=== PATIENT | female | born 1955 | race Caucasian/White ===

== ENCOUNTER 2022-03-04 11:18 | Emergency (ER) | payer MEDICARE ==
[~2022-03-04] VITALS: Ht 152.4 cm; Wt 64.9 kg
[~2022-03-04 11:18] MED LIST: ACET325 PO; ASPI81CH PO; BUPROPION XL150 M1 PO; FAMO20 PO; FLUT1DIS5 INH; FURO20 PO; LOSA50 PO; METO50ER PO; NAPR500 PO; NICO21TP TOP; ONDA4ODT SL; SERT100 PO; SPIR25 PO; TIOT18 INH; TRAZ50 PO; ZOCOR20 MG PO
[2022-03-04 11:48] LABS: BASOPHILS ABSOLUTE AUTO 0.04 K/mm3 (0.00-0.23); BASOPHILS PERCENT AUTO 1 % (0-2); EOSINOPHILS ABSOLUTE AUTO 0.07 K/mm3 (0.00-0.68); EOSINOPHILS PERCENT AUTO 1 % (0-6); Hemoglobin 12.4 g/dL (11.5-16.0); IMMATURE GRAN ABSOLUTE AUTO 0.01 K/mm3 (0.00-0.10); IMMATURE GRAN PERCENT AUTO 0 % (0-1); LYMPHOCYTES ABSOLUTE AUTO 1.93 K/mm3 (0.84-5.20); LYMPHOCYTES PERCENT AUTO 31 % (21-46); MONOCYTES ABSOLUTE AUTO 0.47 K/mm3 (0.16-1.47); MONOCYTES PERCENT AUTO 8 % (4-13); Mean Corpuscular HGB 33.5 pg (26.0-34.0); Mean Corpuscular HGB Conc 34.4 g/dL (31.5-36.5); Mean Corpuscular Volume 97 fL (80-100); Mean Platelet Volume 10.4 fL (9.1-12.4); NEUTROPHILS ABSOLUTE AUTO 3.74 K/mm3 (1.96-9.15); NEUTROPHILS PERCENT AUTO 60 % (41-73); Platelet Count 282 K/mm3 (150-400); RDW Coefficient Variation 11.7 % (11.7-14.2); RDW Standard Deviation 41.6 fL (35.1-46.3); White Blood Cell Count 6.26 K/mm3 (4.00-11.30)
[2022-03-04 12:04] LABS: Albumin, Blood 3.7 g/dL (3.4-5.0); Bilirubin, Total 0.7 mg/dL (0.1-1.0); Bun/Creatinine Ratio 24.3 (12.0-20.0); Calcium, Blood 9.2 mg/dL (8.5-10.1); Creatinine, Blood 0.95 mg/dL (0.40-1.00); Globulin, Blood 3.7 g/dL (2.2-4.0); Potassium, Blood 4.3 mmol/L (3.5-5.5); Total Protein, Blood 7.4 g/dL (6.4-8.2)
== END 2022-03-04 14:54 | disposition home or self-care (01) ==
LOC: ER 11:18
PROVIDERS: Emergency Medicine
DX: R07.89 Other chest pain (principal); Z88.0 Allergy status to penicillin; Z79.899 Other long term (current) drug therapy; Z79.82 Long term (current) use of aspirin; J43.9 Emphysema, unspecified; I25.2 Old myocardial infarction; F17.200 Nicotine dependence, unspecified, uncomplicated
CPT/HCPCS: 71045; 80053; 83690; 83880; 84484; 85025; 93005; 93010; 99285-25; A9270

== ENCOUNTER 2022-09-14 12:56 | Day surgery (SDC) | payer MEDICARE ==
[~2022-09-14] VITALS: Ht 152.4 cm; Wt 61.4 kg
[2022-09-14] MEDS ORDERED: PANT40 (14:15)
[2022-09-14] MEDS ORDERED: ATOR40TA (14:15)
[2022-09-14] MEDS ORDERED: CYCLOBENZAPRINE5 MG (14:16)
[2022-09-14] MEDS ORDERED: CYCL10 (14:16)
[2022-09-14] MEDS ORDERED: PROP10 (14:16)
[2022-09-14 15:55] VITALS: BP 125/57
== END 2022-09-14 15:52 | disposition home or self-care (01) ==
LOC: ORSCSDS 12:56
PROVIDERS: Internal Medicine Gastroenterology
PROC: 0DJD8ZZ Inspection of Lower Intestinal Tract, Via Natural or Artificial Opening Endoscopic (ICD-10-PCS; principal; 2022-09-14 14:30)
DX: Z12.11 Encounter for screening for malignant neoplasm of colon (principal); K57.30 Diverticulosis of large intestine without perforation or abscess without bleeding; J44.9 Chronic obstructive pulmonary disease, unspecified; I25.2 Old myocardial infarction; I27.20 Pulmonary hypertension, unspecified; I50.9 Heart failure, unspecified; Z79.82 Long term (current) use of aspirin; Z79.899 Other long term (current) drug therapy; F17.210 Nicotine dependence, cigarettes, uncomplicated
CPT/HCPCS: J2704; J7120

== ENCOUNTER 2023-02-26 09:43 | Emergency (ER) | payer MEDICARE ==
[~2023-02-26] VITALS: Ht 152.4 cm; Wt 61.2 kg
[~2023-02-26 09:43] MED LIST changes: +ATOR40TA; +CYCL10; +CYCLOBENZAPRINE5 MG; +PANT40; +PROP10
[2023-02-26 10:30] LABS: BASOPHILS ABSOLUTE AUTO 0.04 K/mm3 (0.00-0.23); BASOPHILS PERCENT AUTO 1 % (0-2); EOSINOPHILS ABSOLUTE AUTO 0.04 K/mm3 (0.00-0.68); EOSINOPHILS PERCENT AUTO 1 % (0-6); Hematocrit 37.6 % (33.0-51.0); Hemoglobin 12.9 g/dL (11.5-16.0); IMMATURE GRAN ABSOLUTE AUTO 0.02 K/mm3 (0.00-0.10); IMMATURE GRAN PERCENT AUTO 0 % (0-1); LYMPHOCYTES ABSOLUTE AUTO 1.57 K/mm3 (0.84-5.20); LYMPHOCYTES PERCENT AUTO 19 % (21-46); MONOCYTES ABSOLUTE AUTO 0.63 K/mm3 (0.16-1.47); MONOCYTES PERCENT AUTO 8 % (4-13); Mean Corpuscular HGB 35.1 pg (26.0-34.0); Mean Corpuscular HGB Conc 34.3 g/dL (31.5-36.5); Mean Corpuscular Volume 103 fL (80-100); NEUTROPHILS ABSOLUTE AUTO 5.94 K/mm3 (1.96-9.15); NEUTROPHILS PERCENT AUTO 72 % (41-73); Platelet Count 330 K/mm3 (150-400); RDW Coefficient Variation 13.1 % (11.7-14.2); RDW Standard Deviation 49.5 fL (35.1-46.3); Red Blood Cell Count 3.67 M/mm3 (3.80-5.20); White Blood Cell Count 8.24 K/mm3 (4.00-11.30)
[2023-02-26 10:48] LABS: Albumin, Blood 3.5 g/dL (3.4-5.0); Albumin/Globulin Ratio 0.8 (0.8-1.8); Bilirubin, Total 0.9 mg/dL (0.1-1.0); Bun/Creatinine Ratio 21.1 (12.0-20.0); Calcium, Blood 8.3 mg/dL (8.5-10.1); Creatinine, Blood 0.81 mg/dL (0.40-1.00); Globulin, Blood 4.5 g/dL (2.2-4.0); Potassium, Blood 3.6 mmol/L (3.5-5.5)
[2023-02-26 11:57] VITALS: BP 110/83
[2023-02-26] MEDS ORDERED: OXYC5 PO (12:08)
[2023-02-26] MEDS ORDERED: IBUP600 PO (12:09)
== END 2023-02-26 13:00 | disposition home or self-care (01) ==
LOC: ER 09:43
PROVIDERS: Emergency Medicine
DX: M47.22 Other spondylosis with radiculopathy, cervical region (principal); M50.121 Cervical disc disorder at C4-C5 level with radiculopathy; M50.122 Cervical disc disorder at C5-C6 level with radiculopathy; M50.123 Cervical disc disorder at C6-C7 level with radiculopathy; M48.02 Spinal stenosis, cervical region; J43.9 Emphysema, unspecified; I25.2 Old myocardial infarction; I11.0 Hypertensive heart disease with heart failure; I50.20 Unspecified systolic (congestive) heart failure; E78.5 Hyperlipidemia, unspecified; F41.8 Other specified anxiety disorders; F17.210 Nicotine dependence, cigarettes, uncomplicated; Z88.0 Allergy status to penicillin; Z88.8 Allergy status to other drugs, medicaments and biological substances; Z79.82 Long term (current) use of aspirin; Z79.899 Other long term (current) drug therapy; Z79.51 Long term (current) use of inhaled steroids
CPT/HCPCS: 70450; 72125; 80053; 85025; 96374; 96375; 96376; 99284-25; J1170; J1885

== ENCOUNTER 2023-07-16 20:10 | Inpatient (IN) | payer MEDICARE ==
[~2023-07-16] VITALS: Ht 152.4 cm; Wt 63.5 kg
[~2023-07-16 20:10] MED LIST changes: -ATOR40TA; +ATOR40TA PO; -CYCL10; +CYCL10 PO; +IBUP600 PO; +OXYC5 PO; -PANT40; +PANT40 PO; -PROP10; +PROP10 PO
[2023-07-16] MEDS ORDERED: FentaNYL Citrate 50 MCG/ML 2 ML Injection ONE (20:30)
[2023-07-16] MEDS ORDERED: FentaNYL Citrate 50 MCG/ML 2 ML Injection IV ONE ×2 (20:45→21:10)
[2023-07-16] MEDS ORDERED: Lactated Ringer's 1,000 ML IV ONE (20:45)
[2023-07-16 21:05] LABS: BASOPHILS ABSOLUTE AUTO 0.05 K/mm3 (0.00-0.23); BASOPHILS PERCENT AUTO 1 % (0-2); EOSINOPHILS ABSOLUTE AUTO 0.14 K/mm3 (0.00-0.68); EOSINOPHILS PERCENT AUTO 2 % (0-6); Hematocrit 31.1 % (33.0-51.0); Hemoglobin 10.5 g/dL (11.5-16.0); IMMATURE GRAN ABSOLUTE AUTO 0.02 K/mm3 (0.00-0.10); IMMATURE GRAN PERCENT AUTO 0 % (0-1); LYMPHOCYTES ABSOLUTE AUTO 1.66 K/mm3 (0.84-5.20); LYMPHOCYTES PERCENT AUTO 28 % (21-46); MONOCYTES ABSOLUTE AUTO 0.59 K/mm3 (0.16-1.47); MONOCYTES PERCENT AUTO 10 % (4-13); Mean Corpuscular HGB 33.1 pg (26.0-34.0); Mean Corpuscular HGB Conc 33.8 g/dL (31.5-36.5); Mean Corpuscular Volume 98 fL (80-100); NEUTROPHILS ABSOLUTE AUTO 3.52 K/mm3 (1.96-9.15); NEUTROPHILS PERCENT AUTO 59 % (41-73); Platelet Count 260 K/mm3 (150-400); RDW Coefficient Variation 12.5 % (11.7-14.2); RDW Standard Deviation 44.8 fL (35.1-46.3); Red Blood Cell Count 3.17 M/mm3 (3.80-5.20); White Blood Cell Count 5.98 K/mm3 (4.00-11.30)
[2023-07-16 21:22] LABS: Bun/Creatinine Ratio 22.5 (12.0-20.0); Calcium, Blood 7.7 mg/dL (8.5-10.1); Creatinine, Blood 1.87 mg/dL (0.40-1.00); Potassium, Blood 4.2 mmol/L (3.5-5.5)
[2023-07-16] MEDS ORDERED: HYDROmorphone HCl/Pf 1MG SYR IV ONE (21:30)
[2023-07-16] MEDS ORDERED: NS 1,000 ML IV SCH (21:35)
[2023-07-16 21:40] LABS: Magnesium, Blood 1.5 mg/dL (1.6-2.4)
[2023-07-16] MEDS ORDERED: Propofol 10mg/ml 20 ml Vial (Procedural) IV SCH (21:40)
[2023-07-16] MEDS ORDERED: FLU VACC QS2023-24(6MOS UP)/PF 60 MCG/0.5 ML SYRINGE IM ONE (23:25)
[2023-07-16] MEDS ORDERED: Ondansetron HCl 2 MG / ML 2ML Vial IV PRN (23:30)
[2023-07-16] MEDS ORDERED: Acetaminophen 325 MG TABLET PO PRN (23:30)
[2023-07-16] MEDS ORDERED: HYDROcodone 10-APAP 325 TAB PO PRN (23:30)
[2023-07-16] MEDS ORDERED: Naloxone HCl 0.4MG / ML 1ML Vial IV PRN (23:30)
[2023-07-16] MEDS ORDERED: FentaNYL Citrate 50 MCG/ML 2 ML Injection IV PRN (23:30)
[2023-07-16] MEDS ORDERED: OxyCODONE HCL 5 MG TAB PO PRN (23:40)
[2023-07-16] MEDS ORDERED: Mag Sulfate 1 GM/D5% 100ML 100 ML IV ONE (23:40)
[2023-07-17] VITALS (20 sets, daily range): BP systolic 111–161; BP diastolic 72–107
[2023-07-17] MEDS ORDERED: TraZODone HCl 50 MG Tab PO SCH
[2023-07-17] MEDS ORDERED: Tiotropium Bromide 2.5 MCG/ACT MIST INHAL (10 ACT/4 GM) INH SCH (00:05)
[2023-07-17] MEDS ORDERED: Mometasone/Formoterol MDI 200/5 mcg 13 GM INH SCH (00:05)
[2023-07-17] MEDS ORDERED: Albuterol 2.5 MG/3 ML VIAL INH PRN (02:05)
[2023-07-17 05:35] LABS: BASOPHILS ABSOLUTE AUTO 0.04 K/mm3 (0.00-0.23); BASOPHILS PERCENT AUTO 1 % (0-2); EOSINOPHILS ABSOLUTE AUTO 0.12 K/mm3 (0.00-0.68); EOSINOPHILS PERCENT AUTO 2 % (0-6); Hematocrit 32.7 % (33.0-51.0); Hemoglobin 10.9 g/dL (11.5-16.0); IMMATURE GRAN ABSOLUTE AUTO 0.02 K/mm3 (0.00-0.10); IMMATURE GRAN PERCENT AUTO 0 % (0-1); LYMPHOCYTES ABSOLUTE AUTO 1.58 K/mm3 (0.84-5.20); LYMPHOCYTES PERCENT AUTO 23 % (21-46); MONOCYTES ABSOLUTE AUTO 0.63 K/mm3 (0.16-1.47); MONOCYTES PERCENT AUTO 9 % (4-13); Mean Corpuscular HGB Conc 33.3 g/dL (31.5-36.5); Mean Corpuscular Volume 99 fL (80-100); Mean Platelet Volume 9.9 fL (9.1-12.4); NEUTROPHILS ABSOLUTE AUTO 4.57 K/mm3 (1.96-9.15); NEUTROPHILS PERCENT AUTO 66 % (41-73); Platelet Count 229 K/mm3 (150-400); RDW Coefficient Variation 12.6 % (11.7-14.2); RDW Standard Deviation 45.9 fL (35.1-46.3); White Blood Cell Count 6.96 K/mm3 (4.00-11.30)
[2023-07-17 05:46] LABS: International Normalized Ratio 0.99; Prothrombin Time Results 10.4 Sec (9.7-11.5)
--- NOTE | 2023-07-17 05:48 | NUR ---
SHIFT SUMMARY AOX4. ADMITTED FOR TIB/FIB FX. BEEN NPO FOR POSSIBLE SURGERY TODAY, EXCEPT SM SIP WATER c PAIN MED. REPORTS 10/10 PAIN IN RLE, MEDICATED 2x C 50MCG FENTANYL & 1x c 5MG OXYCODONE, PT ABLE TO REST WELL POST PAIN MEDS. DESATS c PAIN MEDS, PLACED ON 2L O2, OTHERWISE ON RA WHILE AWAKE & W/O PAIN MEDS. REST OF VSS. RLE IN SPLINT, PT ABLE TO WIGGLE TOES, WARM, CAP REFILL <3 SEC, ELEVATED RLE ON PILLOW. HX CVA-HAS SOME STUTTERED, SLURRED SPEECH, RESIDUAL FACIAL DROOP & FORGETFULNESS @TIMES. OTHERWISE ABLE TO USE CALL LIGHT FOR NEEDS. WILL MONITOR.
[2023-07-17 05:54] LABS: Albumin, Blood 3.1 g/dL (3.4-5.0); Bilirubin, Total 0.4 mg/dL (0.1-1.0); Creatinine, Blood 1.37 mg/dL (0.40-1.00); Globulin, Blood 3.2 g/dL (2.2-4.0); Magnesium, Blood 2.1 mg/dL (1.6-2.4); Potassium, Blood 4.4 mmol/L (3.5-5.5); Total Protein, Blood 6.3 g/dL (6.4-8.2)
[2023-07-17] MEDS ORDERED: Atorvastatin 40 MG Tab PO SCH (09:00)
[2023-07-17] MEDS ORDERED: Losartan Potassium 50 MG Tab PO SCH (09:00)
[2023-07-17] MEDS ORDERED: Spironolactone 12.5 MG TAB PO SCH (09:00)
[2023-07-17] MEDS ORDERED: Docusate Sodium 100 MG Cap PO SCH (09:00)
[2023-07-17] MEDS ORDERED: Aspirin 81 MG Chew PO SCH (09:00)
[2023-07-17] MEDS ORDERED: Pantoprazole Sodium 40 MG Tab PO SCH (09:00)
[2023-07-17] MEDS ORDERED: buPROPion HCL 150 MG TAB.SR.12H PO SCH (09:00)
[2023-07-17] MEDS ORDERED: Metoprolol Succinate 50 MG TABCR PO SCH (09:00)
[2023-07-17] MEDS ORDERED: Sertraline HCl 100 MG Tab PO SCH (09:00)
[2023-07-17 10:41] LABS: Source, Urine Foley catheter
[2023-07-17 10:44] LABS: Appearance, Urine Clear (Clear); Bilirubin, Urine Neg (Neg); Blood, Urine Neg (Neg); Color, Urine Yellow (P-Yellow); Glucose Qualitative, Urine Neg (Neg); Ketones, Urine Neg (Neg); Leukocyte Esterase, Urine 1+ (Neg); Nitrite, Urine Neg (Neg); Protein, Urine Neg (Neg); Specific Gravity, Urine 1.015 (1.003-1.022); Urobilinogen, Urine NORM (Normal)
[2023-07-17 10:51] LABS: Bacteria Rare /hpf; Red Blood Cells, Urine 0-2 /hpf (0-2); Squamous Epithelial Cells Not Seen /hpf (Few)
--- NOTE | 2023-07-17 13:06 | NUR ---
PT TO OR.
--- NOTE | 2023-07-17 13:09 | NUR ---
PT HAS A 20G IV TO LEFT AC THAT FLUSHES WELL. PT ALSO HAS 20G IV TO RIGHT FOREARM THAT FLUSHES WELL AND FLOWS TO GRAVITY.
[2023-07-17] MEDS ORDERED: Lactated Ringer's 1,000 ML IV SCH ×2 (13:20)
[2023-07-17] MEDS ORDERED: Bupivacaine 0.5% HCl 5 MG/ML 30MLVIAL ONE (13:29)
[2023-07-17] MEDS ORDERED: propofoL 20 ML IV ONE (13:50)
[2023-07-17] MEDS ORDERED: FentaNYL Citrate 50 MCG/ML 2 ML Injection ONE ×2 (13:51→17:19)
--- NOTE | 2023-07-17 13:52 | NUR ---
1336 DR TALBERT AT PT BEDSIDE TO PERFORM NERVE BLOCK TO POSTERIOR KNEE AND LATERAL THIGH. SEE ANESTHESIA NOTES. TIMEOUT COMPLETE BY RN. NO PRE MEDS GIVEN. BLOCK STARTED AT 1338. PT PLACED ON CONTINUOUS PULSE OXIMENTRY THROUGHOUT PROCEDURE. PT TOLERATED WELL.
[2023-07-17] MEDS ORDERED: CeFAZolin Sodium 2,000 MG in NS 50 ML IV SCH ×2 (13:55→22:00)
--- NOTE | 2023-07-17 13:56 | NUR ---
PT BELONGINGS LEFT IN PT ROOM 214 FOR SAFEKEEPING. PT JEWELRY GIVEN TO HER SPOUSE ROMINA FOR SAFEKEEPING.
[2023-07-17] MEDS ORDERED: Phenylephrine HCl 100 MCG/ML-NS 10MLSYR (1MG/10ML) ONE (14:17)
[2023-07-17] MEDS ORDERED: Rocuronium Bromide 10 MG/ML 5ML Injection IV ONE (15:50)
[2023-07-17] MEDS ORDERED: Dexamethasone Sod Phos 10 MG/ML 1ML VIAL ONE (15:50)
[2023-07-17] MEDS ORDERED: Ondansetron HCl 2 MG / ML 2ML Vial ONE (15:50)
[2023-07-17] MEDS ORDERED: Sugammadex Sodium 200 MG/2ML SDV (100 MG/ML) ONE (15:55)
[2023-07-17] MEDS ORDERED: Albuterol HFA200 ACT/6.7 GM INH ONE (15:59)
[2023-07-17] MEDS ORDERED: Albuterol 2.5 MG/3 ML VIAL ONE (16:29)
--- NOTE | 2023-07-17 18:03 | NUR ---
SUMMARY PT ARRIVED TO UNIT FROM PACU. VERY ANXIOUS. ATTEMPTED TO REASSURE PT. PT'S SPOUSE BEDSIDE, COMFORTING PT. VERY RESTLESS AND SEEMS CONFUSED. KNOWS IN HOSPITAL BUT THOUGHT GOING HOME TO [place] WHEN DC'D. PLACED ICE PACK TO R KNEE FOR COMFORT. CALL LIGHT IN REACH.
[2023-07-18 03:00] VITALS: BP 161/93
[2023-07-18 05:21] LABS: BASOPHILS ABSOLUTE AUTO 0.01 K/mm3 (0.00-0.23); BASOPHILS PERCENT AUTO 0 % (0-2); EOSINOPHILS PERCENT AUTO 0 % (0-6); Hematocrit 31.7 % (33.0-51.0); Hemoglobin 10.4 g/dL (11.5-16.0); IMMATURE GRAN ABSOLUTE AUTO 0.03 K/mm3 (0.00-0.10); IMMATURE GRAN PERCENT AUTO 0 % (0-1); LYMPHOCYTES ABSOLUTE AUTO 0.55 K/mm3 (0.84-5.20); LYMPHOCYTES PERCENT AUTO 7 % (21-46); MONOCYTES ABSOLUTE AUTO 0.66 K/mm3 (0.16-1.47); MONOCYTES PERCENT AUTO 8 % (4-13); Mean Corpuscular HGB 32.5 pg (26.0-34.0); Mean Corpuscular HGB Conc 32.8 g/dL (31.5-36.5); Mean Corpuscular Volume 99 fL (80-100); Mean Platelet Volume 10.1 fL (9.1-12.4); NEUTROPHILS ABSOLUTE AUTO 6.66 K/mm3 (1.96-9.15); NEUTROPHILS PERCENT AUTO 84 % (41-73); Platelet Count 225 K/mm3 (150-400); RDW Coefficient Variation 12.4 % (11.7-14.2); RDW Standard Deviation 45.1 fL (35.1-46.3); White Blood Cell Count 7.91 K/mm3 (4.00-11.30)
[2023-07-18 05:57] LABS: Bun/Creatinine Ratio 26.9 (12.0-20.0); Calcium, Blood 8.6 mg/dL (8.5-10.1); Creatinine, Blood 0.82 mg/dL (0.40-1.00); Potassium, Blood 4.8 mmol/L (3.5-5.5)
--- NOTE | 2023-07-18 06:27 | NUR ---
SHIFT SUMMARY PT'S MENTATION IS IMPROVING, PT WAS VERY SLEEPY/CONFUSED THROUGH MOST OF THE NIGHT, A&O X3 THIS AM, 3 L O2 VIA NC WHILE SLEEPING, CONT BIOX IN PLACE, VSS, ANGELA PO, LOPES PATENT, CLEAR YELLOW URINE NOTED, JAMEY WRAP ON RLL, C/D/I, PT REPORTS DECREASED SENSATION IN R.FOOT, PEDAL PULSE WNL, CAP REFILL 4 SEC, PT REFUSED ICE TO LEG, RESTING QUIETLY IN BED THIS AM, CALL LIGHT IN REACH, BED ALARM IS ON FOR SAFETY, WCTM & REPORT TO DAY RN
[2023-07-18 07:14] VITALS: BP 147/75
[2023-07-18] MEDS ORDERED: OxyCODONE HCL 5 MG TAB PO PRN (08:55)
[2023-07-18] MEDS ORDERED: Furosemide 20 MG Tab PO SCH (09:00)
[2023-07-18] MEDS ORDERED: Ketorolac Tromethamine 15mg Vial IV SCH (09:00)
--- NOTE | 2023-07-18 09:53 | NUR ---
07/18/23 0953 Paige Marshall VERIFICATIONS: EDIT CHART.
--- NOTE | 2023-07-18 10:12 | NUR ---
PT REFUSED WELLBUTRIN AND ZOLOFT. STATES NO LONGER TAKES.
[2023-07-18] MEDS ORDERED: Nicotine 14 MG PATCH TOP SCH (10:40)
--- NOTE | 2023-07-18 13:45 | NUR ---
"Spiritual Care Visit | Pt. Request Pt. is awake in bed and welcomes my visit. Pt. is pleasant. Facilitated a life review and listened with interest and empathy. Pt. verbalized that her is at home and supportive. Pt. displayed evidence of engagement and general awareness. Prayed with Pt. Pt. verbalized gratitude for the spiritual care visit."
[2023-07-18] MEDS ORDERED: GABA300 PO (14:55)
[2023-07-18] MEDS ORDERED: DULO60 PO (14:56)
[2023-07-18] MEDS ORDERED: Acetaminophen 500 MG Tab PO SCH (16:00)
[2023-07-18 16:03] VITALS: BP 149/71
--- NOTE | 2023-07-18 17:25 | NUR ---
DISCHARGED TO . CALLED REPORT TO WINIFRED AT . PT LEFT UNIT IN [facility] [employer]. PT'S SPOUSE TOOK PERSONAL POSSESSIONS.
== END 2023-07-18 17:25 | DRG 493 ==
LOC: ER 20:10 → SURS 20:11
PROVIDERS: Internal Medicine; Orthopaedic Surgery Sports Medicine; Student in an Organized Health Care Education/Training Program; ADMIT Student in an Organized Health Care Education/Training Program
PROC: 0QSJXZZ Reposition Right Fibula, External Approach (ICD-10-PCS; 2023-07-16)
PROC: 0QSGXZZ Reposition Right Tibia, External Approach (ICD-10-PCS; 2023-07-16)
PROC: 0QSJ04Z Reposition Right Fibula with Internal Fixation Device, Open Approach (ICD-10-PCS; 2023-07-17)
PROC: 0QSG36Z Reposition Right Tibia with Intramedullary Internal Fixation Device, Percutaneous Approach (ICD-10-PCS; principal; 2023-07-17 13:30)
DX: S82.241A Displaced spiral fracture of shaft of right tibia, initial encounter for closed fracture (principal); E87.1 Hypo-osmolality and hyponatremia; I13.0 Hypertensive heart and chronic kidney disease with heart failure and stage 1 through stage 4 chronic kidney disease, or unspecified chronic kidney disease; I50.22 Chronic systolic (congestive) heart failure; N17.9 Acute kidney failure, unspecified; S82.441A Displaced spiral fracture of shaft of right fibula, initial encounter for closed fracture; E86.0 Dehydration; N18.2 Chronic kidney disease, stage 2 (mild); J43.9 Emphysema, unspecified; K21.9 Gastro-esophageal reflux disease without esophagitis; F41.8 Other specified anxiety disorders; E78.5 Hyperlipidemia, unspecified; I95.9 Hypotension, unspecified; E83.42 Hypomagnesemia; R94.31 Abnormal electrocardiogram [ECG] [EKG]; W18.39XA Other fall on same level, initial encounter; I25.2 Old myocardial infarction; Y92.009 Unspecified place in unspecified non-institutional (private) residence as the place of occurrence of the external cause; Z86.73 Personal history of transient ischemic attack (TIA), and cerebral infarction without residual deficits; Z88.0 Allergy status to penicillin; Z79.51 Long term (current) use of inhaled steroids; Z88.8 Allergy status to other drugs, medicaments and biological substances; Z79.82 Long term (current) use of aspirin; Z90.49 Acquired absence of other specified parts of digestive tract; Z72.0 Tobacco use
CPT/HCPCS: 27752; 36415; 51702; 73590; 76000; 76770; 80048; 80053; 81001; 82570; 82947; 83735; 84300; 85025; 85610; 94640; 94664; 94762; 96361-59; 96374-59; 96375; 96375-59; 96376; 96376-59; 97110; 97162; 97166; 97530; 99152; 99153; 99285-25; A9270; G0378; J0690; J1100; J1170; J1885; J2371; J2405; J2704; J3010; J3475; J7030; J7120

== ENCOUNTER → 2023-08-22 | Outpatient (CLI) | payer MEDICARE ==
[~2023-08-22] MED LIST changes: +ALBU2.5V5 INH; +CELE200 PO; +DOCU100 PO; +DULO60 PO; -FURO20 PO; +FURO40 PO; +GABA300 PO; +LOKELMA10 GM PO; -LOSA50 PO; +LOSARTAN POTAS100 M1 PO; +Nicoderm Cq1 EAC1 TOP; +OXAYDO5 M2 PO; +ROLAIDS ULTRA PO
[2023-08-22 21:05] LABS: Potassium, Blood 3.9 mmol/L (3.5-5.5)
== END ==
LOC: LAB SHORT 19:14 → LAB 19:14
PROVIDERS: Family Medicine
DX: E87.6 Hypokalemia (principal)
CPT/HCPCS: 80051

== ENCOUNTER → 2023-09-19 | Outpatient (CLI) | payer MEDICARE | END | disposition home or self-care (01) | LOC: LAB SHORT 18:54 → LAB 18:54 | DX: N18.2 Chronic kidney disease, stage 2 (mild) (principal) | CPT/HCPCS: 84550 ==

== ENCOUNTER → 2023-11-09 | Outpatient (CLI) | payer MEDICARE ==
[2023-11-09 17:42] LABS: Albumin, Blood 3.5 g/dL (3.4-5.0); Anion Gap 10 mmol/L (3-11); Blood Urea Nitrogen 17 mg/dL (8-24); Bun/Creatinine Ratio 20.3 (12.0-20.0); CO2, Blood 25 mmol/L (21-32); Calcium, Blood 7.6 mg/dL (8.5-10.1); Chloride, Blood 106 mmol/L (98-108); Creatinine, Blood 0.84 mg/dL (0.40-1.00); Glomerular Filtration Rate 75 (60-); Glucose, Blood 93 mg/dL (70-99); Phosphorus, Blood 3.4 mg/dL (2.5-4.9); Potassium, Blood 3.7 mmol/L (3.5-5.5); Sodium, Blood 137 mmol/L (136-145)
== END ==
LOC: LAB 14:32 → LAB SHORT 14:32
PROVIDERS: Family Medicine
DX: N18.2 Chronic kidney disease, stage 2 (mild) (principal)
CPT/HCPCS: 80069

== ENCOUNTER 2024-01-16 06:40 | Inpatient (IN) | payer MEDICARE ==
[2024-01-16] VITALS (7 sets, daily range): BP systolic 146–205; BP diastolic 69–102
[~2024-01-16] VITALS: Ht 160 cm; Wt 63.0 kg
[~2024-01-16 06:40] MED LIST changes: +DULO30 PO; -DULO60 PO
[2024-01-16] MEDS ORDERED: Metoprolol Tartrate 50 MG Tab PO ONE (06:55)
[2024-01-16] MEDS ORDERED: Losartan Potassium 50 MG Tab PO ONE (06:55)
[2024-01-16] MEDS ORDERED: Albuterol 2.5 MG/3 ML VIAL INH SCH (06:55)
[2024-01-16] MEDS ORDERED: Ipratropium/Albuterol SulF 2.5-0.5MG/3 ML Amp INH ONE (06:55)
[2024-01-16 07:01] LABS: BASOPHILS ABSOLUTE AUTO 0.04 K/mm3 (0.00-0.23); BASOPHILS PERCENT AUTO 0 % (0-2); EOSINOPHILS ABSOLUTE AUTO 0.03 K/mm3 (0.00-0.68); EOSINOPHILS PERCENT AUTO 0 % (0-6); Hematocrit 33.3 % (33.0-51.0); Hemoglobin 11.3 g/dL (11.5-16.0); IMMATURE GRAN ABSOLUTE AUTO 0.03 K/mm3 (0.00-0.10); IMMATURE GRAN PERCENT AUTO 0 % (0-1); LYMPHOCYTES ABSOLUTE AUTO 2.01 K/mm3 (0.84-5.20); LYMPHOCYTES PERCENT AUTO 20 % (21-46); MONOCYTES ABSOLUTE AUTO 0.43 K/mm3 (0.16-1.47); MONOCYTES PERCENT AUTO 4 % (4-13); Mean Corpuscular HGB 34.3 pg (26.0-34.0); Mean Corpuscular HGB Conc 33.9 g/dL (31.5-36.5); Mean Corpuscular Volume 101 fL (80-100); Mean Platelet Volume 10.2 fL (9.1-12.4); NEUTROPHILS ABSOLUTE AUTO 7.53 K/mm3 (1.96-9.15); NEUTROPHILS PERCENT AUTO 75 % (41-73); Platelet Count 258 K/mm3 (150-400); RDW Coefficient Variation 13.6 % (11.7-14.2); Red Blood Cell Count 3.29 M/mm3 (3.80-5.20); White Blood Cell Count 10.07 K/mm3 (4.00-11.30)
[2024-01-16 07:30] LABS: Albumin, Blood 3.2 g/dL (3.4-5.0); Albumin/Globulin Ratio 0.9 (0.8-1.8); Bilirubin, Total 0.9 mg/dL (0.1-1.0); Bun/Creatinine Ratio 19.5 (12.0-20.0); Calcium, Blood 7.5 mg/dL (8.5-10.1); Creatinine, Blood 0.67 mg/dL (0.40-1.00); Globulin, Blood 3.7 g/dL (2.2-4.0); Potassium, Blood 3.4 mmol/L (3.5-5.5); Total Protein, Blood 6.9 g/dL (6.4-8.2)
[2024-01-16] MEDS ORDERED: NS 1,000 ML IV ONE (07:35)
[2024-01-16] MEDS ORDERED: Magnesium Sulf 2 GM/Water 50ML 50 ML IV ONE (07:35)
[2024-01-16] MEDS ORDERED: LORazepam 2 MG/ML 1ML Injection IV ONE ×2 (07:35→08:55)
[2024-01-16] MEDS ORDERED: Potassium Chloride 20 MEQ TabCR PO ONE (07:35)
[2024-01-16] MEDS ORDERED: GABA400 PO (07:51)
[2024-01-16] MEDS ORDERED: METO50 PO (07:52)
[2024-01-16] MEDS ORDERED: LOSARTAN POTAS100 M1 PO (07:52)
[2024-01-16] MEDS ORDERED: CALCIUM 600 MG PO (07:54)
[2024-01-16] MEDS ORDERED: Furosemide 10 MG/ML 4ML Vial IV ONE (08:30)
[2024-01-16] MEDS ORDERED: PredniSONE 20 MG Tab PO ONE (09:30)
[2024-01-16] MEDS ORDERED: Prochlorperazine Edisylate 10 mg Vial IV PRN (11:55)
[2024-01-16] MEDS ORDERED: TraZODone HCl 50 MG Tab PO PRN (11:55)
[2024-01-16] MEDS ORDERED: Acetaminophen 325 MG TABLET PO PRN (11:55)
[2024-01-16 12:21] LABS: Percent Saturation 31.5 % (15.0-50.0)
[2024-01-16] MEDS ORDERED: Nicotine 14 MG PATCH TOP SCH (13:50)
[2024-01-16] MEDS ORDERED: HydrALAZINE HCl 20 MG / ML 1ML Vial IV PRN (13:50)
--- NOTE | 2024-01-16 13:52 | NUR ---
PT ADMITTED FROM ED- CALLED DR FENG PT BP 201/103. DR VANEGAS RECIEVED PRN HYDRALIZINE ORDER AND NICOTIENE PATCH ORDER. WILL GIVE SOON AVAILABLE. LUNG SOUNDS INSPIRATORY FINE CRACKLES IN THE BASES AND EXPIRATORY WHEEZES IN THE UPPER. NO NOTED SKIN ISSUES. PT INDEPENDENT TO BSC AT THIS TIME.
--- NOTE | 2024-01-16 16:04 | NUR ---
SHIFT SUMMARY- PT ADMITTED THROUGH THE ED FOR CHF. BNP 2512, SHE RECIEVED LASIX IN THE EDAS WELL OTHER BP MEDS BP WAS STILL ELEVATED UPON ARRIVAL TO MED FLOOR. CALLED AND RECIEVED AN ORDER FOR NICOTINE PATCH AND IV HYDRALIZINE Q4P. PT RECIEVED HER FIRST DOSE ON ARRIVAL. SBP WAS BELOW 160 ON RECHECK. PT IS CURRENTLY IN BED, CALL LIGHT IN REACH SLEEPING ON HER RIGHT SIDE. PT IS UNABLE TO LAY FLAT OR ON HER LEFT SIDE A PRECAUTION FOR HER RECENT EYE SURGERY. PT HAS WHEEZES AND FINE CRACKLES ON AUSCULTATION OF HER LUNGS. CURRENTLY ON ROOM AIR WITH CONT BIOX SHOWING SATS GREATER THAN 90%. NO S&S OF DISTRESS NOTED.
[2024-01-16] MEDS ORDERED: Potassium Chloride 10 Meq Tablet SA PO SCH (17:00)
[2024-01-16] MEDS ORDERED: Furosemide 10 MG/ML 4ML Vial IV SCH (18:00)
[2024-01-16] MEDS ORDERED: Gabapentin 400 MG Cap PO SCH (21:00)
[2024-01-16] MEDS ORDERED: Metoprolol Tartrate 50 MG Tab PO SCH (21:00)
[2024-01-16] MEDS ORDERED: Sennosides 8.6 MG Tab PO SCH (21:00)
[2024-01-17] VITALS (9 sets, daily range): BP systolic 102–188; BP diastolic 64–110
[2024-01-17] MEDS ORDERED: Pantoprazole Sodium 40 MG Tab PO SCH (06:00)
--- NOTE | 2024-01-17 06:36 | NUR ---
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 PATIENT IS ON TELE RUNNING SINUS RHYTHUM AT 72. PATIENT COMPLAINED OF HEADACHE THIS MORNING, PRN TYLENOL WAS GIVEN. PATIENT IS INDEPENDENT AT BEDSIDE COMMODE, USES CALL LIGH APPROPRIATELY, BED AT LOW POSITION, AND CALL LIGHT WITHIN REACH.
[2024-01-17 06:42] LABS: Bun/Creatinine Ratio 27.9 (12.0-20.0); Calcium, Blood 8.1 mg/dL (8.5-10.1); Creatinine, Blood 0.68 mg/dL (0.40-1.00); Magnesium, Blood 1.4 mg/dL (1.6-2.4); Phosphorus, Blood 2.5 mg/dL (2.5-4.9); Potassium, Blood 3.2 mmol/L (3.5-5.5)
[2024-01-17 06:58] LABS: BASOPHILS ABSOLUTE AUTO 0.02 K/mm3 (0.00-0.23); BASOPHILS PERCENT AUTO 0 % (0-2); EOSINOPHILS ABSOLUTE AUTO 0.02 K/mm3 (0.00-0.68); EOSINOPHILS PERCENT AUTO 0 % (0-6); Hematocrit 35.5 % (33.0-51.0); Hemoglobin 12.2 g/dL (11.5-16.0); IMMATURE GRAN ABSOLUTE AUTO 0.06 K/mm3 (0.00-0.10); IMMATURE GRAN PERCENT AUTO 1 % (0-1); LYMPHOCYTES ABSOLUTE AUTO 1.11 K/mm3 (0.84-5.20); LYMPHOCYTES PERCENT AUTO 12 % (21-46); MONOCYTES ABSOLUTE AUTO 0.44 K/mm3 (0.16-1.47); MONOCYTES PERCENT AUTO 5 % (4-13); Mean Corpuscular HGB 34.1 pg (26.0-34.0); Mean Corpuscular HGB Conc 34.4 g/dL (31.5-36.5); Mean Corpuscular Volume 99 fL (80-100); Mean Platelet Volume 10.7 fL (9.1-12.4); NEUTROPHILS ABSOLUTE AUTO 7.88 K/mm3 (1.96-9.15); NEUTROPHILS PERCENT AUTO 83 % (41-73); NRBC ABSOLUTE 0.04 K/mm3 (0.00-0.02); NRBC Auto 0.4 /100 WBC (0.0-0.2); Platelet Count 281 K/mm3 (150-400); RDW Coefficient Variation 13.8 % (11.7-14.2); RDW Standard Deviation 49.8 fL (35.1-46.3); Red Blood Cell Count 3.58 M/mm3 (3.80-5.20); White Blood Cell Count 9.53 K/mm3 (4.00-11.30)
[2024-01-17] MEDS ORDERED: Atorvastatin 40 MG Tab PO SCH (09:00)
[2024-01-17] MEDS ORDERED: DULoxetine HCL 60 MG Capsule DR PO SCH (09:00)
[2024-01-17] MEDS ORDERED: Losartan Potassium 50 MG Tab PO SCH (09:00)
[2024-01-17] MEDS ORDERED: Heparin Sodium,Porcine 5,000 UNIT/0.5 ML SDV SC SCH (09:00)
[2024-01-17] MEDS ORDERED: Magnesium Sulf 2 GM/Water 50ML 50 ML IV STA (09:21)
[2024-01-17] MEDS ORDERED: NS 250 ML IV PRN (09:35)
[2024-01-17 10:12] LABS: Base Excess Venous 7.4 mmol/L; Bicarbonate Venous 30.8 mmol/L (24.0-30.0); PCO2 Venous 38.8 mmHg (38-42); pH Blood Venous 7.51 (7.34-7.37)
[2024-01-17] MEDS ORDERED: Verapamil HCL 180 MG TABCR PO SCH (11:10)
[2024-01-17] MEDS ORDERED: LORazepam 1 MG Tab PO PRN (11:10)
[2024-01-17] MEDS ORDERED: Potassium Chloride 10 Meq Tablet SA PO SCH (17:00)
--- NOTE | 2024-01-17 17:20 | NUR ---
SHIFT SUMMARY- PT ALERT AND ORIENTED, INDEPENDENT IN THE ROOM. SHE HAD 2G IV MAG TODAY. AFTER THAT HER BP DROPPED TO WNL. SHE HAD A NEW ORDER FOR PO ATIVAN PRN THAT SHE REQUESTED THIS EVENING AND RECIEVED. PT WAS MEDICATED WITH TYLENOL BY NIGHT RN AND THEN APPROXIMATELY 2 HOURS LATER SHE WAS CRYING SAYING HER EYE AND HEAD WERE HURTIING 10/10 PAIN. PROVIDED THE PT WITH AN ICE PACK, AFTER A FEW MINUTES SHE WAS BACK TO HER USUAL BEHAVIOR STATING THAT WAS SOME SORT OF "MAGIC ICE" BECAUSE THE PAIN WAS WELL MANAGED AGAIN. PT HAS A NEW MED ORDER FOR BP MANAGEMENT. THE FIRST DOSE TODAY WAS HELD D/T LOW PRESSURES LIKELY FROM THE IV MAG. PT IS CURRENTLY IN BED, TELE SHOWED A PROLONGED QT AT .51 THIS MORNING AFTER THE MAG RIDER THE QT WAS .49 PER TELE. PT CALL LIGHT IS IN REACH, SHE HAS FAMILY AT THE BEDSIDE CURRENTLY. PLAN IS TO CONTINUE WITH IV LASIX AND POSSIBLY DC THE PT HOME MONDAY PER DR FENG THIS AM. NO CURRENT S&S OF DISTRESS NOTED.
[2024-01-18 03:55] VITALS: BP 150/76
--- NOTE | 2024-01-18 05:23 | NUR ---
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 ON ROOM AIR, NO TELE, PATIENT COMPLAINED OF PAIN AND ANXIATY PRN PAIN AND ANXIETY MEDS WERE GIVEN. PATIENT IS INDEPENDENT IN ROOM TO BEDSIDE COMMODE PATIENT IS ABLE TO MAKE NEEDS KNOWN
[2024-01-18 07:05] VITALS: BP 181/80
[2024-01-18 09:09] LABS: Bun/Creatinine Ratio 28.4 (12.0-20.0); Calcium, Blood 8.7 mg/dL (8.5-10.1); Creatinine, Blood 1.02 mg/dL (0.40-1.00)
[2024-01-18 09:39] VITALS: BP 107/72
[2024-01-18 17:56] VITALS: BP 125/68
--- NOTE | 2024-01-18 18:09 | NUR ---
VSS, except for high BP of 181/80, 10mg IV hydaziline given per order, BP went down to 125/68 by end of shift, denies SOB, denies any pain, states moderate anxiety that was well managed with prn ativan, ambulates independently in room, on RA and 2L at night. Lungs diminished, heart regular, pt was in junction ryme on tele, MD notifed, stat 12 lead order, contient of urine and stool. Pt can make needs known, call irwin in hand, bed in lowest position.
[2024-01-18 19:21] VITALS: BP 129/61
[2024-01-19 02:29] VITALS: BP 153/79
--- NOTE | 2024-01-19 03:03 | NUR ---
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 ALERT AND ORIENTED. ON ROOM AIR DURING THE DAYM BUT O2 AT 2L NC AT NIGHT FOR SOB DUE TO CHF. MED TELE JUNCTIONAL RHYTHM AND ASYMPTOMATIC. MD NOTIFIED AND NO NEW ORDERS GIVEN. ABLE TO REPOSITION SELF IN BED WITHOUT ASSIST, BUT IS WHEELCHAIR BOUND AND NEEDS ASSISTANCE WHEN OOB. O2 SATS IN THE 90'S. NO VOICED SOB, BUT VOICED ANXIETY AT HS AND RECEIVED PO ATIVAN. HAS BEEN RESTING QUIETLY AT INTERVALS. CALL LIGHT IN REACH, RAILS UP X 2 AND BED IN LOW POSITION FOR SAFETY. WILL ONT TO MONITOR
[2024-01-19 06:31] LABS: Bun/Creatinine Ratio 39.5 (12.0-20.0); Calcium, Blood 8.6 mg/dL (8.5-10.1); Creatinine, Blood 0.94 mg/dL (0.40-1.00); Magnesium, Blood 1.9 mg/dL (1.6-2.4); Potassium, Blood 4.7 mmol/L (3.5-5.5)
[2024-01-19 07:16] VITALS: BP 160/77
[2024-01-19] MEDS ORDERED: Furosemide 40 MG Tab PO SCH (09:00)
[2024-01-19] MEDS ORDERED: FURO40 PO (11:32)
[2024-01-19] MEDS ORDERED: Nicoderm Cq1 EAC1 TOP (11:33)
[2024-01-19] MEDS ORDERED: POTA10T PO (11:34)
[2024-01-19] MEDS ORDERED: SENNA LAXATIVE8.6 MG PO (11:35)
[2024-01-19] MEDS ORDERED: VERA180ER PO (11:36)
[2024-01-19] MEDS ORDERED: BUSP5 PO (11:36)
--- NOTE | 2024-01-19 14:30 | NUR ---
DISCHARGE SUMMARY: PT DISCHARGED HOME TODAY. SPOUSE PRESENT. BOTH PT AND SPOUSE EDUCATED ON DISCHARGE MEDICATIONS AND INSTRUCTIONS. PT/SP V/U. ASSISTED PT WITH PACKING UP HER BELONGINGS. PT ADVISED SHE WILL NEED TO FOLLOW-UP WITH PCP DR. ORTIZ IN ONE WEEK WHEN SHE REPORTED SHE WAS GOING TO WAIT TO SEE HER BOBTAIL DRIVER IN February. ADVISED SHE NEEDS FOLLOW-UP SOONER FOR CONCERNS OF ELECTROLYTE IMBALANCE. ALSO PT NEEDS OUTPT SLEEP STUDY TO SEE IF SHE CAN QUALIFY FOR OXYGEN. PT V/U.
== END 2024-01-19 14:00 | disposition home or self-care (01) | DRG 291 ==
LOC: ER 06:40 → MEDS 11:50
PROVIDERS: Student in an Organized Health Care Education/Training Program; ADMIT Internal Medicine
DX: I11.0 Hypertensive heart disease with heart failure (principal); I50.43 Acute on chronic combined systolic (congestive) and diastolic (congestive) heart failure; J96.01 Acute respiratory failure with hypoxia; E87.3 Alkalosis; F10.239 Alcohol dependence with withdrawal, unspecified; J44.1 Chronic obstructive pulmonary disease with (acute) exacerbation; I27.20 Pulmonary hypertension, unspecified; F17.210 Nicotine dependence, cigarettes, uncomplicated; E78.5 Hyperlipidemia, unspecified; G47.9 Sleep disorder, unspecified; M19.90 Unspecified osteoarthritis, unspecified site; E87.6 Hypokalemia; E83.42 Hypomagnesemia; K21.9 Gastro-esophageal reflux disease without esophagitis; F41.8 Other specified anxiety disorders; D63.8 Anemia in other chronic diseases classified elsewhere; Z88.0 Allergy status to penicillin; Z88.8 Allergy status to other drugs, medicaments and biological substances; Z79.899 Other long term (current) drug therapy; Z86.73 Personal history of transient ischemic attack (TIA), and cerebral infarction without residual deficits; I25.2 Old myocardial infarction; Z79.891 Long term (current) use of opiate analgesic; Z79.82 Long term (current) use of aspirin; Z79.51 Long term (current) use of inhaled steroids; Z90.49 Acquired absence of other specified parts of digestive tract; Z98.890 Other specified postprocedural states; Z90.710 Acquired absence of both cervix and uterus
CPT/HCPCS: 36415; 71046; 80048; 80053; 82728; 82803; 83540; 83550; 83605; 83735; 83880; 84100; 84145; 84484; 85025; 93005; 93010; 93306; 94644; 94664; 94761; 94762; 96365-59; 96375-59; 96376-59; 99285-25; A9270; J0360; J1644; J1940; J2060; J3475; J7030; J7050; J7512

== ENCOUNTER 2024-03-29 17:04 | Emergency (ER) | payer MEDICARE ==
[~2024-03-29] VITALS: Ht 165.1 cm; Wt 61.2 kg
[~2024-03-29 17:04] MED LIST changes: +BUSP5 PO; +CALCIUM 600 MG PO; +GABA400 PO; +METO50 PO; +POTA10T PO; +SENNA LAXATIVE8.6 MG PO; +VERA180ER PO
[2024-03-29 18:12] LABS: BASOPHILS ABSOLUTE AUTO 0.04 K/mm3 (0.00-0.23); BASOPHILS PERCENT AUTO 1 % (0-2); EOSINOPHILS ABSOLUTE AUTO 0.03 K/mm3 (0.00-0.68); EOSINOPHILS PERCENT AUTO 0 % (0-6); Hematocrit 35.1 % (33.0-51.0); Hemoglobin 12.5 g/dL (11.5-16.0); IMMATURE GRAN ABSOLUTE AUTO 0.05 K/mm3 (0.00-0.10); IMMATURE GRAN PERCENT AUTO 1 % (0-1); LYMPHOCYTES ABSOLUTE AUTO 1.69 K/mm3 (0.84-5.20); LYMPHOCYTES PERCENT AUTO 21 % (21-46); MONOCYTES ABSOLUTE AUTO 0.49 K/mm3 (0.16-1.47); MONOCYTES PERCENT AUTO 6 % (4-13); Mean Corpuscular HGB 35.4 pg (26.0-34.0); Mean Corpuscular HGB Conc 35.6 g/dL (31.5-36.5); Mean Corpuscular Volume 99 fL (80-100); Mean Platelet Volume 9.9 fL (9.1-12.4); NEUTROPHILS ABSOLUTE AUTO 5.58 K/mm3 (1.96-9.15); NEUTROPHILS PERCENT AUTO 71 % (41-73); Platelet Count 289 K/mm3 (150-400); RDW Coefficient Variation 12.8 % (11.7-14.2); Red Blood Cell Count 3.53 M/mm3 (3.80-5.20); White Blood Cell Count 7.88 K/mm3 (4.00-11.30)
[2024-03-29 18:43] LABS: Albumin, Blood 3.2 g/dL (3.4-5.0); Albumin/Globulin Ratio 0.8 (0.8-1.8); Bilirubin, Total 0.6 mg/dL (0.1-1.0); Bun/Creatinine Ratio 23.4 (12.0-20.0); Calcium, Blood 6.4 mg/dL (8.5-10.1); Creatinine, Blood 1.28 mg/dL (0.40-1.00); Potassium, Blood 3.3 mmol/L (3.5-5.5); Total Protein, Blood 7.2 g/dL (6.4-8.2)
[2024-03-29 19:44] LABS: Source, Urine Clean Catch
[2024-03-29 19:47] LABS: Appearance, Urine Clear (Clear); Bilirubin, Urine Neg (Neg); Blood, Urine Neg (Neg); Color, Urine Yellow (P-Yellow); Glucose Qualitative, Urine Neg (Neg); Ketones, Urine Neg (Neg); Leukocyte Esterase, Urine 2+ (Neg); Nitrite, Urine Neg (Neg); Protein, Urine Neg (Neg); Urobilinogen, Urine NORM (Normal)
[2024-03-29 20:06] LABS: Bacteria Many /hpf; Red Blood Cells, Urine 0-2 /hpf (0-2); Squamous Epithelial Cells Few /hpf (Few)
[2024-03-29] MEDS ORDERED: CEPH500 PO (20:23)
[2024-03-29] MEDS ORDERED: Cephalexin Monohydrate 500 MG Cap PO ONE (20:25)
[2024-03-29 20:30] VITALS: BP 114/69
== END 2024-03-29 20:45 | disposition home or self-care (01) ==
LOC: ER 17:04
PROVIDERS: Physician Assistant
DX: E86.0 Dehydration (principal); R79.89 Other specified abnormal findings of blood chemistry; F17.210 Nicotine dependence, cigarettes, uncomplicated; K21.9 Gastro-esophageal reflux disease without esophagitis; E78.5 Hyperlipidemia, unspecified; I11.0 Hypertensive heart disease with heart failure; I50.20 Unspecified systolic (congestive) heart failure; I25.2 Old myocardial infarction; J44.9 Chronic obstructive pulmonary disease, unspecified; Z87.448 Personal history of other diseases of urinary system; Z86.73 Personal history of transient ischemic attack (TIA), and cerebral infarction without residual deficits; Z79.899 Other long term (current) drug therapy; Z88.0 Allergy status to penicillin; Z91.018 Allergy to other foods; Z88.8 Allergy status to other drugs, medicaments and biological substances
CPT/HCPCS: 36415; 80053; 81001; 85025; 87086; 99283; A9270

== ENCOUNTER 2024-06-17 15:14 | Observation (INO) | payer MEDICARE ==
[~2024-06-17] VITALS: Ht 160 cm; Wt 59.0 kg
[~2024-06-17 15:14] MED LIST changes: +CEPH500 PO
[2024-06-17 16:08] LABS: BASOPHILS ABSOLUTE AUTO 0.06 K/mm3 (0.00-0.23); BASOPHILS PERCENT AUTO 1 % (0-2); EOSINOPHILS ABSOLUTE AUTO 0.05 K/mm3 (0.00-0.68); EOSINOPHILS PERCENT AUTO 1 % (0-6); Hemoglobin 12.9 g/dL (11.5-16.0); IMMATURE GRAN ABSOLUTE AUTO 0.06 K/mm3 (0.00-0.10); IMMATURE GRAN PERCENT AUTO 1 % (0-1); LYMPHOCYTES ABSOLUTE AUTO 1.93 K/mm3 (0.84-5.20); LYMPHOCYTES PERCENT AUTO 28 % (21-46); MONOCYTES ABSOLUTE AUTO 0.59 K/mm3 (0.16-1.47); MONOCYTES PERCENT AUTO 9 % (4-13); Mean Corpuscular HGB 36.3 pg (26.0-34.0); Mean Corpuscular HGB Conc 34.9 g/dL (31.5-36.5); Mean Corpuscular Volume 104 fL (80-100); NEUTROPHILS ABSOLUTE AUTO 4.18 K/mm3 (1.96-9.15); NEUTROPHILS PERCENT AUTO 61 % (41-73); NRBC ABSOLUTE 0.03 K/mm3 (0.00-0.02); NRBC Auto 0.4 /100 WBC (0.0-0.2); RDW Coefficient Variation 12.9 % (11.7-14.2); RDW Standard Deviation 49.4 fL (35.1-46.3); Red Blood Cell Count 3.55 M/mm3 (3.80-5.20); White Blood Cell Count 6.87 K/mm3 (4.00-11.30)
[2024-06-17 16:12] LABS: Albumin, Blood 3.4 g/dL (3.4-5.0); Albumin/Globulin Ratio 0.9 (0.8-1.8); Bilirubin, Total 0.6 mg/dL (0.1-1.0); Bun/Creatinine Ratio 15.1 (12.0-20.0); Creatinine, Blood 1.52 mg/dL (0.40-1.00); Globulin, Blood 3.8 g/dL (2.2-4.0); Potassium, Blood 3.1 mmol/L (3.5-5.5); Total Protein, Blood 7.2 g/dL (6.4-8.2)
[2024-06-17] MEDS ORDERED: Aspirin 325 MG Tab PO ONE (16:30)
[2024-06-17 16:39] LABS: International Normalized Ratio 1.05; Prothrombin Time Results 11.2 Sec (9.7-11.5)
[2024-06-17] MEDS ORDERED: Aspirin 300 MG Supp PR ONE (16:40)
[2024-06-17 17:00] LABS: Source, Urine Clean Catch
[2024-06-17 17:14] LABS: Mean Platelet Volume 10.1 fL (9.1-12.4); Platelet Count 312 K/mm3 (150-400)
[2024-06-17 17:24] LABS: Bilirubin, Urine Neg (Neg); Blood, Urine Neg (Neg); Glucose Qualitative, Urine Neg (Neg); Ketones, Urine Neg (Neg); Leukocyte Esterase, Urine Neg (Neg); Nitrite, Urine Neg (Neg); Protein, Urine 1+ (Neg); Urobilinogen, Urine NORM (Normal); pH, Urine 6.5 (5.0-8.0)
[2024-06-17 17:34] LABS: Appearance, Urine Clear (Clear); Color, Urine Yellow (P-Yellow)
[2024-06-17] MEDS ORDERED: NS 1,000 ML IV SCH ×2 (18:20→20:55)
[2024-06-17] MEDS ORDERED: Prochlorperazine Edisylate 10 mg Vial IV ONE (19:05)
[2024-06-17] MEDS ORDERED: DiphenhydrAMINE HCl 50 MG/ML 1ML Vial IV ONE (19:05)
[2024-06-17] MEDS ORDERED: Ondansetron HCl 2 MG / ML 2ML Vial IV PRN (20:55)
[2024-06-17] MEDS ORDERED: FLU VACC TS2024-25(6MOS UP)/PF 45 MCG/0.5 ML SYRINGE IM SCH (20:55)
[2024-06-17] MEDS ORDERED: Potassium Chloride 20 MEQ/15 ML UDC PO ONE (21:00)
[2024-06-17] MEDS ORDERED: Albuterol 2.5 MG/3 ML VIAL INH PRN (21:35)
[2024-06-17] MEDS ORDERED: Potassium Chloride 40 MEQ in NS 250 ML IV STA (21:41)
[2024-06-17] MEDS ORDERED: NS 0 ML IV ONE (22:34)
[2024-06-17] MEDS ORDERED: SENOKOT8.6 MG PO (23:56)
[2024-06-17] MEDS ORDERED: OYSTER SHELL C500 MG PO (23:57)
[2024-06-17] MEDS ORDERED: THERA-D2000 UNIT PO (23:57)
[2024-06-17] MEDS ORDERED: MECL12.5 PO (23:58)
[2024-06-18] MEDS ORDERED: ALBUTEROL1.25 MG/3 INH
[2024-06-18 01:27] VITALS: BP 177/65
[2024-06-18 02:18] VITALS: BP 142/74
--- NOTE | 2024-06-18 05:27 | NUR ---
T/F AND SUMMARY: REPORT RECEIVED FROM JUSTEN (ORDER PACKER OR PACKAGER) AND PT T/F TO ROOM 332 [facility]IA [employer]. SHE'S WAS ORIENTED TO ROOM AND CALL SYSTEM W/BED IN LOW POSITION FOR SAFETY. PT WAS ADMITTED FOR POSSIBLE CVA W/NEW ONSET STROKE LIKE SYMPTOMS THAT APPEAR TO BE IMPROVING. SHE'S A/OX4 AND AWARE OF LIMITATIONS. PT REPORTS GENERAL WEAKNESS W/L.LEG SLIGHTLY WEAKER THAN BASELINE BUT [facility] CONSULTANT STRENGTH IS EQUAL AND CJ. SPEECH IS MILDLY GARBLED AND PT SAYS WORDS FEEL "SLOW AND DELAYED" AT TIMES BUT SHE'S ABLE TO COMMUNICATE NEEDS. SHE'S STRICT NPO D/T FAILED SWALLOW EVAL IN ER W/SPEECH TX CONSULT PENDING. PT IS SBA TO BSC PRN AND NS INFUSES AT 75 ML/HR. SHE C/O PAIN TO L.RIBS AND UNDER BREAST R/T RECENT COUGH BUT NO PRN MEDS WERE REQUIRED. SHE REMAINS ON 1L O2 VIA NC D/T DESAT TO 80'S% ON RA WHILE ASLEEP BUT PT DOESN'T WEAR O2 AT BASELINE. PT IS NSR ON TELE AT 70'S BPM W/ALL OTHER VSS/AFEBRILE. NO ACUTE CHANGES AND NEURS OBS UNCHANGED. ECHO PLANNED TODAY. WCTM AND REPORT TO DAY RN.
[2024-06-18] MEDS ORDERED: Nicotine Polacrilex 2 MG Gum PO PRN (05:55)
[2024-06-18] MEDS ORDERED: Pantoprazole Sodium 40 MG Tab PO SCH (06:00)
[2024-06-18] MEDS ORDERED: Pantoprazole Sodium 40 MG Injection IV SCH (06:00)
[2024-06-18 06:29] LABS: BASOPHILS ABSOLUTE AUTO 0.03 K/mm3 (0.00-0.23); BASOPHILS PERCENT AUTO 1 % (0-2); EOSINOPHILS ABSOLUTE AUTO 0.06 K/mm3 (0.00-0.68); EOSINOPHILS PERCENT AUTO 1 % (0-6); Hematocrit 32.3 % (33.0-51.0); Hemoglobin 10.9 g/dL (11.5-16.0); IMMATURE GRAN PERCENT AUTO 0 % (0-1); LYMPHOCYTES ABSOLUTE AUTO 1.67 K/mm3 (0.84-5.20); LYMPHOCYTES PERCENT AUTO 36 % (21-46); MONOCYTES ABSOLUTE AUTO 0.44 K/mm3 (0.16-1.47); MONOCYTES PERCENT AUTO 9 % (4-13); Mean Corpuscular HGB 36.1 pg (26.0-34.0); Mean Corpuscular HGB Conc 33.7 g/dL (31.5-36.5); Mean Corpuscular Volume 107 fL (80-100); Mean Platelet Volume 9.7 fL (9.1-12.4); NEUTROPHILS ABSOLUTE AUTO 2.46 K/mm3 (1.96-9.15); NEUTROPHILS PERCENT AUTO 53 % (41-73); Platelet Count 219 K/mm3 (150-400); RDW Coefficient Variation 13.2 % (11.7-14.2); RDW Standard Deviation 51.1 fL (35.1-46.3); Red Blood Cell Count 3.02 M/mm3 (3.80-5.20); White Blood Cell Count 4.66 K/mm3 (4.00-11.30)
[2024-06-18 06:48] LABS: Bilirubin, Total 0.9 mg/dL (0.1-1.0); Bun/Creatinine Ratio 18.6 (12.0-20.0); Calcium, Blood 8.4 mg/dL (8.5-10.1); Creatinine, Blood 1.18 mg/dL (0.40-1.00)
[2024-06-18] MEDS ORDERED: Ketorolac Tromethamine 15mg Vial IV ONE (07:20)
[2024-06-18 08:41] VITALS: BP 148/64
[2024-06-18] MEDS ORDERED: Thiamine HCl 100 MG Tab PO SCH (09:00)
[2024-06-18] MEDS ORDERED: Aspirin 300 MG Supp PR SCH (09:00)
[2024-06-18] MEDS ORDERED: Thiamine HCl 100 MG in NS 50 ML IV SCH (09:00)
[2024-06-18] MEDS ORDERED: Atorvastatin 40 MG Tab PO SCH (09:00)
[2024-06-18] MEDS ORDERED: Multivitamins 1 Tab PO SCH (09:00)
[2024-06-18] MEDS ORDERED: Aspirin 81 MG Chew PO SCH (09:00)
[2024-06-18] MEDS ORDERED: Folic Acid 1 MG TAB PO SCH (09:00)
[2024-06-18] MEDS ORDERED: Heparin Sodium 5000 Units/ML 1ML MDV SC SCH (09:00)
[2024-06-18] MEDS ORDERED: Polyethylene Glycol 3350 17 gm PO PRN (10:35)
[2024-06-18] MEDS ORDERED: HYDROcodone 5-APAP 325 TAB PO PRN (10:40)
[2024-06-18] MEDS ORDERED: BusPIRone HCl 5 MG Tab PO PRN (10:45)
[2024-06-18 15:03] VITALS: BP 137/70
[2024-06-18] MEDS ORDERED: FUROSEMIDE20 MG PO (16:05)
[2024-06-18] MEDS ORDERED: D5W-1/2NS 1,000 ML IV SCH (17:05)
--- NOTE | 2024-06-18 18:00 | NUR ---
SHIFT SUMMARY PT A&OX4, VSS, AMB W/ SBA TO THE BATHROOM, TOLERATING PO, VOIDING, AND PAIN MANAGED PER EMAR. PT HAD SPEECH EVAL AND MRI THIS SHIFT. NO NEW ACUTE FINDINGS. NEPHROLOGY CONSULT COMPLETED AND ROUNDED ON PT. D51/2NS INFUSING PER ORDER. PT WORKED W/ PHYSICAL THERAPY, SEE THERAPY NOTE. NO OTHER ACUTE CHANGES. CALL LIGHT WITHIN REACH AND PT ABLE TO MAKE NEEDS KNOWN.
[2024-06-18 20:15] VITALS: BP 172/80
[2024-06-18] MEDS ORDERED: Docusate Sodium/Senna 1 Tab PO SCH (21:00)
[2024-06-18] MEDS ORDERED: Metoprolol Tartrate 50 MG Tab PO SCH (21:00)
[2024-06-19 03:13] VITALS: BP 194/84
[2024-06-19] MEDS ORDERED: HydrALAZINE HCl 20 MG / ML 1ML Vial IV PRN (03:40)
[2024-06-19 05:26] VITALS: BP 174/73
[2024-06-19 05:46] VITALS: BP 165/80
--- NOTE | 2024-06-19 05:47 | NUR ---
SHIFT SUMMARY PATIENT HAD NO ACUTE CHANGES. AXOX 4 AND SBA TO BR. PIV INTACT. D5 1/2 NS INFUSING @ 50 mL/HR. REPORTED LEFT FLANK PAIN X 2 AND NORCO PER EVENT. DENIES CHEST PAIN, SOB, AND N/V. TELE MONITOR NSR 78. BP ELEVATED BEFORE SCHEDULE PO LOPRESSOR GIVEN AND AGAIN 194/84 SECOND SET VITALS. HOSPITALIST DR HALE ORDERED IV APRESOLINE 10 MG FOR SBP >170 PLUS DAY BP MED. RECHECK: 165/80. AFEBRILE. SLEPT MOST OF THE SHIFT. CALL LIGHT IN REACH. BED IN LOWEST POSITION. WILL CONTINUE TO MONITOR UNTIL DAY SHIFT NURSE ASSUMES CARE.
[2024-06-19 06:02] LABS: Hematocrit 31.8 % (33.0-51.0); Hemoglobin 10.9 g/dL (11.5-16.0); Mean Corpuscular HGB 35.5 pg (26.0-34.0); Mean Corpuscular HGB Conc 34.3 g/dL (31.5-36.5); Mean Corpuscular Volume 104 fL (80-100); Mean Platelet Volume 10.1 fL (9.1-12.4); Platelet Count 218 K/mm3 (150-400); RDW Coefficient Variation 12.5 % (11.7-14.2); RDW Standard Deviation 47.6 fL (35.1-46.3); Red Blood Cell Count 3.07 M/mm3 (3.80-5.20); White Blood Cell Count 5.29 K/mm3 (4.00-11.30)
[2024-06-19 06:21] LABS: Anion Gap 11 mmol/L (3-11); Blood Urea Nitrogen 17 mg/dL (8-24); Bun/Creatinine Ratio 16.8 (12.0-20.0); CO2, Blood 23 mmol/L (21-32); Calcium, Blood 8.6 mg/dL (8.5-10.1); Chloride, Blood 110 mmol/L (98-108); Creatinine, Blood 1.01 mg/dL (0.40-1.00); Glomerular Filtration Rate 60 (60-); Glucose, Blood 87 mg/dL (70-99); Magnesium, Blood 1.7 mg/dL (1.6-2.4); Phosphorus, Blood 2.5 mg/dL (2.5-4.9); Potassium, Blood 3.8 mmol/L (3.5-5.5); Sodium, Blood 140 mmol/L (136-145)
[2024-06-19 08:08] VITALS: BP 183/79
[2024-06-19] MEDS ORDERED: Aspirin 81 MG Chew PO SCH (09:00)
[2024-06-19] MEDS ORDERED: Calcium Carbonate 1,250 MG TABLET PO SCH (09:00)
[2024-06-19] MEDS ORDERED: Verapamil HCL 180 MG TABCR PO SCH (09:00)
[2024-06-19] MEDS ORDERED: Losartan Potassium 25 MG Tab PO SCH (09:00)
[2024-06-19] MEDS ORDERED: Clopidogrel Bisulfate 75 MG Tab PO SCH (09:00)
[2024-06-19] MEDS ORDERED: Atorvastatin 40 MG Tab PO SCH (09:00)
[2024-06-19] MEDS ORDERED: Cholecalciferol 1000 Unit Tablet (=25MCG) PO SCH (09:00)
[2024-06-19] MEDS ORDERED: DULoxetine HCL 30 MG Cap DR PO SCH (09:00)
[2024-06-19] MEDS ORDERED: Multivitamins 1 Tab PO SCH (09:00)
[2024-06-19] MEDS ORDERED: JARDIANCE10 MG PO (14:09)
[2024-06-19] MEDS ORDERED: ASPI81CH PO (14:09)
[2024-06-19 14:30] VITALS: BP 118/72
--- NOTE | 2024-06-19 14:45 | NUR ---
DISCHARGE NOTE PT DISCHARGED HOME AT 1430. PT PROVIDED W/ VERBAL AND WRITTEN INSTRUCTIONS AND REPORTED UNDERSTANDING. PT A&OX4, VSS, AMB IND, TOLERATING PO, VOIDING, AND PAIN MANAGED PER EMAR. BELONGINGS WERE RETURNED. PT ESCOURTED OUT BY JOURDAN EMERSON.
== END 2024-06-19 14:38 | disposition home health service (06) ==
LOC: ER 15:14 → MEDS 15:15 → ER 20:50 → MEDS 20:50 → ERHOLD 20:50 → MEDS 06-18 01:00 → ERHOLD 06-18 01:17 → MEDS 06-18 01:17
PROVIDERS: Internal Medicine; Student in an Organized Health Care Education/Training Program; ADMIT Student in an Organized Health Care Education/Training Program
DX: I63.9 Cerebral infarction, unspecified (principal); I25.10 Atherosclerotic heart disease of native coronary artery without angina pectoris; I25.2 Old myocardial infarction; J44.9 Chronic obstructive pulmonary disease, unspecified; I27.21 Secondary pulmonary arterial hypertension; I13.0 Hypertensive heart and chronic kidney disease with heart failure and stage 1 through stage 4 chronic kidney disease, or unspecified chronic kidney disease; I50.30 Unspecified diastolic (congestive) heart failure; N18.30 Chronic kidney disease, stage 3 unspecified; N25.81 Secondary hyperparathyroidism of renal origin; E78.5 Hyperlipidemia, unspecified; Z79.899 Other long term (current) drug therapy; Z88.0 Allergy status to penicillin; Z88.8 Allergy status to other drugs, medicaments and biological substances; Z91.010 Allergy to peanuts
CPT/HCPCS: 36415; 70450; 70496; 70498; 70551; 71045; 76770; 80053; 80069; 80320; 83735; 84484; 85025; 85027; 85379; 85610; 85730; 92610; 93005; 93010; 93306; 96361; 96372; 96374-59; 96375; 97110; 97116; 97162; 97165; 97530; 99285-25; A9270; G0378; J0360; J0780; J1200; J1644; J1885; J2470; J3411; J3480; J7030; J7042; J7050; Q9967

== ENCOUNTER 2024-11-28 01:22 | Day surgery (SDC) | payer MEDICARE ==
[~2024-11-28 01:22] MED LIST changes: +ALBUTEROL1.25 MG/3 INH; +FUROSEMIDE20 MG PO; +JARDIANCE10 MG PO; +MECL12.5 PO; +OYSTER SHELL C500 MG PO; +SENOKOT8.6 MG PO; +THERA-D2000 UNIT PO
[2024-11-28] MEDS ORDERED: Magnesium Sulf 2 GM/Water 50ML 50 ML IV SCH (06:00)
[2024-11-28 14:06] VITALS: BP 94/49
[2024-11-28] MEDS ORDERED: CYMBALTA30 M2 PO (14:26)
[2024-11-28] MEDS ORDERED: Neurontin800 MG PO (14:26)
[2024-11-28] MEDS ORDERED: CALCITRIOL0.25 MC4 PO (14:27)
== END 2024-11-28 15:45 | disposition home or self-care (01) ==
LOC: ATC 01:22
DX: E83.42 Hypomagnesemia (principal); I12.9 Hypertensive chronic kidney disease with stage 1 through stage 4 chronic kidney disease, or unspecified chronic kidney disease; N18.2 Chronic kidney disease, stage 2 (mild); D63.1 Anemia in chronic kidney disease; M10.9 Gout, unspecified; E86.9 Volume depletion, unspecified; N25.81 Secondary hyperparathyroidism of renal origin; Z79.899 Other long term (current) drug therapy; Z88.0 Allergy status to penicillin
CPT/HCPCS: 96365; 96366; J3475

== ENCOUNTER 2024-11-29 01:26 | Day surgery (SDC) | payer MEDICARE ==
[~2024-11-29 01:26] MED LIST changes: +CALCITRIOL0.25 MC4 PO; +CYMBALTA30 M2 PO; +Neurontin800 MG PO
[2024-11-29] MEDS ORDERED: Magnesium Sulf 2 GM/Water 50ML 50 ML IV SCH (06:00)
[2024-11-29 07:40] VITALS: BP 109/59
== END 2024-11-29 09:38 | disposition home or self-care (01) ==
LOC: ATC 01:26
DX: E83.42 Hypomagnesemia (principal); I12.9 Hypertensive chronic kidney disease with stage 1 through stage 4 chronic kidney disease, or unspecified chronic kidney disease; N18.2 Chronic kidney disease, stage 2 (mild); D63.1 Anemia in chronic kidney disease; N25.81 Secondary hyperparathyroidism of renal origin; M10.9 Gout, unspecified; F17.200 Nicotine dependence, unspecified, uncomplicated; Z79.899 Other long term (current) drug therapy; Z88.0 Allergy status to penicillin; N18.30 Chronic kidney disease, stage 3 unspecified; E78.00 Pure hypercholesterolemia, unspecified; R76.9 Abnormal immunological finding in serum, unspecified; R94.5 Abnormal results of liver function studies; R94.6 Abnormal results of thyroid function studies
CPT/HCPCS: 36415; 80069; 85018; 96365; 96366; J3475

== ENCOUNTER 2024-11-30 01:00 | Day surgery (SDC) | payer MEDICARE ==
[2024-11-30] MEDS ORDERED: Magnesium Sulf 2 GM/Water 50ML 50 ML IV SCH (06:00)
[2024-11-30 13:20] VITALS: BP 95/51
== END 2024-11-30 15:09 | disposition home or self-care (01) ==
LOC: ATC 01:00
DX: E83.42 Hypomagnesemia (principal); I12.9 Hypertensive chronic kidney disease with stage 1 through stage 4 chronic kidney disease, or unspecified chronic kidney disease; N18.2 Chronic kidney disease, stage 2 (mild); D63.1 Anemia in chronic kidney disease; N25.81 Secondary hyperparathyroidism of renal origin; M10.9 Gout, unspecified; F17.200 Nicotine dependence, unspecified, uncomplicated; Z79.899 Other long term (current) drug therapy; Z88.0 Allergy status to penicillin
CPT/HCPCS: 96365; 96366; J3475

== ENCOUNTER 2024-12-01 07:19 | Day surgery (SDC) | payer MEDICARE ==
[~2024-12-01 07:19] MED LIST changes: +Magnesium Sulf 2 GM/Water 50ML 50 ML IV SCH
[2024-12-01 09:11] VITALS: BP 94/61
== END 2024-12-01 11:03 | disposition home or self-care (01) ==
LOC: ATC 07:19
DX: E83.42 Hypomagnesemia (principal); I12.9 Hypertensive chronic kidney disease with stage 1 through stage 4 chronic kidney disease, or unspecified chronic kidney disease; N18.2 Chronic kidney disease, stage 2 (mild); D63.1 Anemia in chronic kidney disease; N25.81 Secondary hyperparathyroidism of renal origin; M10.9 Gout, unspecified; F17.200 Nicotine dependence, unspecified, uncomplicated; Z79.899 Other long term (current) drug therapy; Z88.0 Allergy status to penicillin
CPT/HCPCS: 96365; 96366; J3475

== ENCOUNTER 2024-12-14 19:54 | Emergency (ER) | payer MEDICARE ==
[~2024-12-14] VITALS: Ht 152.4 cm; Wt 59.9 kg
[~2024-12-14 19:54] MED LIST changes: -Magnesium Sulf 2 GM/Water 50ML 50 ML IV SCH
[2024-12-14 20:16] LABS: BASOPHILS ABSOLUTE AUTO 0.05 K/mm3 (0.00-0.23); BASOPHILS PERCENT AUTO 1 % (0-2); EOSINOPHILS ABSOLUTE AUTO 0.06 K/mm3 (0.00-0.68); EOSINOPHILS PERCENT AUTO 1 % (0-6); Hematocrit 33.4 % (33.0-51.0); Hemoglobin 11.0 g/dL (11.5-16.0); IMMATURE GRAN ABSOLUTE AUTO 0.02 K/mm3 (0.00-0.10); IMMATURE GRAN PERCENT AUTO 0 % (0-1); LYMPHOCYTES ABSOLUTE AUTO 2.66 K/mm3 (0.84-5.20); LYMPHOCYTES PERCENT AUTO 31 % (21-46); MONOCYTES ABSOLUTE AUTO 0.58 K/mm3 (0.16-1.47); MONOCYTES PERCENT AUTO 7 % (4-13); Mean Corpuscular HGB Conc 32.9 g/dL (31.5-36.5); Mean Corpuscular Volume 105 fL (80-100); NEUTROPHILS ABSOLUTE AUTO 5.13 K/mm3 (1.96-9.15); NEUTROPHILS PERCENT AUTO 60 % (41-73); NRBC ABSOLUTE 0.00 K/mm3 (0.00-0.02); NRBC Auto 0.0 /100 WBC (0.0-0.2); Platelet Count 264 K/mm3 (150-400); RDW Coefficient Variation 13.6 % (11.7-14.2); RDW Standard Deviation 52.7 fL (35.1-46.3)
[2024-12-14 20:36] LABS: Alanine Aminotransfer (ALT/SGP 27.0 U/L (12-78); Albumin, Blood 3.1 g/dL (3.4-5.0); Albumin/Globulin Ratio 0.9 (0.8-1.8); Anion Gap 12.0 mmol/L (3-11); Aspartate Aminotrans (AST/SGOT 30.0 U/L (12-37); Bilirubin, Total 0.4 mg/dL (0.1-1.0); Blood Urea Nitrogen 25.0 mg/dL (8-24); CO2, Blood 21.0 mmol/L (21-32); Calcium, Blood 8.6 mg/dL (8.5-10.1); Chloride, Blood 106.0 mmol/L (98-108); Creatinine, Blood 1.36 mg/dL (0.40-1.00); Globulin, Blood 3.3 g/dL (2.2-4.0); Glucose, Blood 107.0 mg/dL (70-99); Magnesium, Blood 1.5 mg/dL (1.6-2.4); Potassium, Blood 4.0 mmol/L (3.5-5.5); Sodium, Blood 135.0 mmol/L (136-145); Total Protein, Blood 6.4 g/dL (6.4-8.2)
[2024-12-14] MEDS ORDERED: NS 500 ML IV SCH (20:45)
[2024-12-14] MEDS ORDERED: Morphine Sulfate 4 MG/1 ML Injection IV ONE (21:20)
[2024-12-14 21:29] VITALS: BP 105/60
== END 2024-12-14 21:54 | disposition home or self-care (01) ==
LOC: ER 19:54
PROVIDERS: Student in an Organized Health Care Education/Training Program
DX: R55 Syncope and collapse (principal); I25.2 Old myocardial infarction; K21.9 Gastro-esophageal reflux disease without esophagitis; E78.5 Hyperlipidemia, unspecified; J44.9 Chronic obstructive pulmonary disease, unspecified; F17.210 Nicotine dependence, cigarettes, uncomplicated; Z87.891 Personal history of nicotine dependence; Z79.82 Long term (current) use of aspirin; Z79.899 Other long term (current) drug therapy; Z88.0 Allergy status to penicillin; Z88.8 Allergy status to other drugs, medicaments and biological substances; Z91.018 Allergy to other foods
CPT/HCPCS: 70450; 80053; 83735; 84484; 85025; 93005; 93010; 96361; 96374; 99285-25; A9270; J2270; J7030